=== PATIENT | female | born 1970 | race Caucasian/White ===

== ENCOUNTER 2016-09-15 18:53 | Emergency (ER) | payer OTHER ==
[~2016-09-15] VITALS: Ht 162.6 cm; Wt 87.7 kg
[~2016-09-15 18:53] MED LIST: HYDR-4003 PO; NAPR550T44 PO; OMEP-113 PO; ONDA4TAB6 PO; ROB500 PO; SUCR1ORA PO
[2016-09-15 19:10] VITALS: BP 144/86; PULSE 111; RESP 16; O2SAT 95
--- NOTE | 2016-09-15 19:19 | ED.REPORT ---
HPI-Chest Pain 40 and Over Date of Service Sep 15, 2016 ED Provider: Royal Kirkland MD Patient is a 45 y/o female with a history of sciatica, anxiety, kidney stones, cholecystectomy and appendectomy presenting to the ED complaining of a rapid heart rate and a general feeling of being unwell that began last night. This is accompanied by nausea and right sided back pain that have been progressively worsening today. The patient denies dysuria, shaking chills, shortness of breath or fever. She has not consumed caffeine or other drugs. Nursing Notes Chief Complaint: Dysrhythmia/Cardiac Nursing Notes Reviewed: Yes Allergies: Coded Allergies: No Known Allergies (Verified Allergy, Unknown, 09/15/16) Scheduled Cephalexin (Cephalexin) 500 Mg Capsule 500 MG PO QID Methocarbamol (Methocarbamol) 500 Mg Tablet 500 MG PO TID Omeprazole Magnesium (Omeprazole) 20 Mg Capsule.dr 20 MG PO DAILY Sucralfate (Sucralfate) 1 Gm/10 Ml Oral.susp 10 ML PO QID Scheduled PRN Hydrocodone-Acetaminophen 5-325 mg (Hydrocodone-Acetaminophen 5-325 mg) 1 Each Tablet 1-2 EACH PO Q4 PRN PRN For Pain Hydrocodone-Acetaminophen 5-325 mg (Hydrocodone-Acetaminophen 5-325 mg) 1 Each Tablet 1-2 TABLET PO Q4H PRN PRN For Pain Naproxen Sodium (Naproxen Sodium) 550 Mg Tab 550 MG PO BID PRN PRN For Pain Ondansetron (Zofran) 4 Mg Tablet 4 MG PO Q4H PRN PRN For Nausea General Time Seen by MD: 19:19 Chief Complaint Other (Rapid heart rate) Hx Obtained From: Patient Arrived By: Walk-in Sudden in Onset?: Yes Onset Occurred: 13 - 16 hours ago Context of Onset: At rest Symptom Duration: Since onset Recent Healthcare: No recent hospitalization, Recent doctor visit Similar Sx Previous: No Past Medical History Past Medical History Sciatica Kidney stones Anxiety Past Surgical History Right ACL repair Reports: Appendectomy, Cholecystectomy, Hysterectomy Smoking History Current Every Day Smoker Social History Other Social History: Good social support Ambulatory Status Independent Review of Systems Review of Systems Note: rapid heart rate Constitutional: Denies: Chills, Fever Respiratory: Denies: Shortness of breath Cardiovascular: Reports: Palpitations, Denies: Chest pain GI: Reports: Nausea, Denies: Abdominal pain, Vomiting Musculoskeletal: Reports: Back pain (Right side) Complete sys rev & neg: except as marked. Female: Denies: Dysuria Physical Exam Initial Vital Signs Vital Signs (First) Date Time Temp Pulse Resp B/P Pulse Ox O2 Delivery O2 Flow Rate FiO2 09/15/16 19:10 36.9 111 16 144/86 95 Room Air Initial VS: Reviewed Head / Eyes: Atraumatic, Normocephalic Skin: Warm, Dry Neurologic: Alert, Oriented General/Constitutional: Awake, Alert, Well developed Respiratory / Chest: Breath sounds NL, Breath sounds = bilat, No respiratory distress Cardiovascular: Heart rate NL, Regular rhythm, No gallop, No murmurs, No rubs Abdomen: Atraumatic, Soft, Non-tender, BS normoactive Neck: Atraumatic, Supple, Full range of motion thyroid normal Back: Atraumatic, Full range of motion Right sided CVAT Lower Extremity / Pelvis / MS: Atraumatic, Full range of motion Psychiatric: Affect NL, Mood NL ENT: Atraumatic, Airway patent, Mucous membranes moist, Pharynx NL Upper Extremity / MS: Atraumatic, Full range of motion Interpretation & Diagnostics Lab Results Interpretation Result Diagram: 09/15/16193909/15/161939 Test 09/15/16 19:40 White Blood Count 10.0th/mm3 (3.8-10.1) Red Blood Count 5.01mil/mm3 (3.90-5.20) Hemoglobin 15.7g/dL (12.0-15.6) Hematocrit 46.3% (35.0-46.0) Mean Corpuscular Volume 92.4fL (81-100) Mean Corpuscular Hemoglobin 31.3pg (27.0-35.0) Mean Corpuscular Hemoglobin Concent 33.9% (32.0-37.0) Red Cell Distribution Width 12.4% (12.3-15.4) Platelet Count 353bil/L (150-400) Neutrophils (%) (Auto) 52.2% (40-74) Lymphocytes (%) (Auto) 39.7% (14-46) Monocytes (%) (Auto) 6.2% (4-12) Eosinophils (%) (Auto) 1.4% (0-5) Basophils (%) (Auto) 0.3% (0-3) D-Dimer < 0.50mg/L FEU (<0.50) Urine Color Yellow (YELLOW) Urine Appearance Hazy (CLEAR,HAZY) Urine pH 5.5 (5.0-8.0) Urine Specific [place] 1.030 (1.003-1.035) Urine Protein Negativemg/dL (NEG,TRACE) Urine Glucose (UA) Negativemg/dL (NEGATIVE) Urine Ketones Negativemg/dL (NEGATIVE) Urine Occult Blood Trace (NEGATIVE) Urine Nitrite Negative (NEGATIVE) Urine Bilirubin Negative (NEGATIVE) Urine Urobilinogen Normalmg/dL (NORMAL) Urine Leukocyte Esterase Small (NEGATIVE) Urine RBC 0-2/hpf (0-2) Urine WBC 11-50/hpf (0-5) Urine Epithelial Cells Many/hpf (NONE-MOD) Urine Crystals None seen (NONE SEEN) Urine Bacteria Moderate/hpf (NONE-FEW) Urine Hyaline Casts None/lpf (NONE) Urine Granular Casts None seen (NONE SEEN) Urine Waxy Casts None seen (NONE SEEN) Urine Red Blood Cell Casts None seen (NONE SEEN) Urine White Blood Cell Casts None seen (NONE SEEN) Urine Mucus Present (None Seen) Urine Trichomonas None seen (NONE SEEN) Urine Yeast None (NONE SEEN) Urinalysis Comment None Urine Culture Reflexed Indicated Sodium Level 143mEq/L (134-144) Potassium Level 4.1mEq/L (3.5-5.2) Chloride Level 105mEq/L (97-108) Carbon Dioxide Level 22mmol/L (18-29) Blood Urea Nitrogen 12mg/dL (6-24) Creatinine 0.95mg/dL (0.57-1.00) Estimat Glomerular Filtration Rate 90mL/min (>59) Glucose Level 103mg/dL (60-99) Lactic Acid Level 1.2mmol/L (0.4-2.0) Calcium Level 9.9mg/dL (8.5-10.1) Magnesium Level 2.3mg/dL (1.6-2.6) Total Bilirubin 0.3mg/dL (0.0-1.2) Aspartate Amino Transf (AST/SGOT) 19U/L (0-50) Alanine Aminotransferase (ALT/SGPT) 19U/L (0-32) Alkaline Phosphatase 88U/L (25-150) Troponin T < 0.010ug/L (0.0-0.011) Total Protein 7.8g/dL (6.4-8.4) Albumin 4.8g/dL (3.4-5.0) Thyroid Stimulating Hormone (TSH) 2.420uIU/mL (0.450-4.500) Hold Aleman Top Tube Received (Received) ECG Interpretation ECG Interpretation: Probable left atrial enlargement Inferior infarct, old Probable anterolateral infarct, age indeterminate Time: 19:30 Interpreted by: ED physician Rhythm / Conduction: Tachycardia (107) X-Ray Chest Interpretation Chest Xray Interpretation: IMPRESSION: No acute process. Dictated by: Austin Ross M.D. on 09/15/2016 at 19:59 Approved by: Austin Ross M.D. on 09/15/2016 at 20:00 Interpretation / Wet Read by: Interpret - Radiologist Re-Eval/Medical Decision Source of Hx: Old records Time of Eval: 19:25 Patient Status: Condition improved Re-Evaluation/Progress Note: Patients diagnosis and lab results are discussed. Plan for discharge is explained. Patient understands and agrees with the plan. Counseled Regarding: Diagnosis, Lab results, Need for follow-up, When/why to return to ED Discharge & Departure Primary Impression: Acute pyelonephritis Additional Impression: Sinus tachycardia Disposition: Home Discharge Condition All VS Reviewed: Yes Condition: Improved Patient Instructions: Acute Pyelonephritis (ED) Additional Instructions: Emergency Department evaluation included millimeter, examination and labs. We noted a rapid heart rate, rhythm was normal. Right flank pain and tenderness is suggestive of kidney infection, urinalysis is likewise suggestive. There is no evidence for a heart problem, serious systemic reaction to infection, or pulmonary embolism. We have started antibiotics which will provide coverage for 24 hours. Starting in 24 hours take cephalexin 500 mg 4 times a day for 10 days. May use ibuprofen 600 mg every 6 hours as needed for pain. Return emergency Department for increasing pain, fevers or chills, frequent vomiting, or feeling worse. Follow-up with primary care in about 5 days. Referrals: Rashad Maravilla MD (PCP) Scribe Attestation Portions of this note were transcribed by Meliton Wilson and Esmer Acosta. I, Dr. Slack personally performed the history, physical exam and medical decision- making; I reviewed and confirmed the accuracy of the information in the transcribed note. Signed by: Meliton Wilson and Robles Bermudez, 2016 and 2331. copies to: Rashad Maravilla MD, Donald L MD Sep 15, 2016 19:19 Meliton Wilson Sep 15, 2016 19:48 ESMER ACOSTA Sep 15, 2016 23:30
[2016-09-15 19:56] LABS: BASOPHILS % (AUTO) 0.3 % (0-3); EOSINOPHILS % (AUTO) 1.4 % (0-5); MONOCYTES % (AUTO) 6.2 % (4-12); Mean Corpuscular Hemoglobin 31.3 pg (27.0-35.0); Mean Corpuscular Volume 92.4 fL (81-100); NEUTROPHILS % (AUTO) 52.2 % (40-74); Platelet Count 353 bil/L (150-400)
--- NOTE | 2016-09-15 20:01 | DRSVH ---
PROCEDURE: X-RAY CHEST, TWO VIEWS ([id number]) INDICATIONS: dysrhythmia TECHNIQUE: 2 views of the chest were acquired. COMPARISON: None. FINDINGS: Surgical changes and devices: None. Lungs and pleura: No pleural effusions or pneumothorax. Lungs are clear. Mediastinum: Mediastinal contours are normal. Heart size is normal. Bones and chest wall: No suspicious bony abnormalities. Soft tissues appear unremarkable. IMPRESSION: No acute process. Dictated by: Austin Ross M.D. on 09/15/2016 at 19:59 Approved by: Austin Ross M.D. on 09/15/2016 at 20:00
[2016-09-15 20:03] LABS: APPEARANCE,URINE HAZY (CLEAR,HAZY); COLOR,URINE YELLOW (YELLOW); OCCULT BLOOD,URINE TRACE (NEGATIVE); PH,URINE 5.5 (5.0-8.0); UROBILINOGEN,URINE NORMAL (NORMAL)
[2016-09-15 20:19] LABS: Magnesium 2.3 mg/dL (1.6-2.6)
[2016-09-15 20:26] LABS: TROPONIN T < 0.010 ug/L (0.0-0.011)
[2016-09-15] MEDS ORDERED: 0.9% Sodium Chloride 1,000 ML IV ONE (21:25)
[2016-09-15] MEDS ORDERED: cefTRIAXone Inj 2,000 MG in Dextrose 5% Minibag Plus 50 ML IV ONE (21:25)
[2016-09-15] MEDS ORDERED: CEPH500C PO (22:28)
[2016-09-15 23:04] VITALS: BP 143/78; PULSE 82; RESP 16; O2SAT 98
== END 2016-09-15 23:08 | disposition home or self-care (01) ==
LOC: SED 18:53
DX: N10 Acute pyelonephritis (principal); R00.0 Tachycardia, unspecified; F17.200 Nicotine dependence, unspecified, uncomplicated; Z87.442 Personal history of urinary calculi
CPT/HCPCS: 36415; 71020; 80053; 81000; 81002; 81025; 83605; 83735; 84443; 84484; 85025; 85378; 87086; 87088; 93005; 96365; 99285; J0696; J7030